=== PATIENT | female | born 1960 | race Hispanic/Latino ===

== ENCOUNTER 2019-05-07 16:35 | Emergency (ER) | payer MEDICAID | END 2019-05-07 17:00 | disposition left against medical advice (07) | LOC: ED 16:35 | DX: R46.89 Other symptoms and signs involving appearance and behavior (principal); Z53.21 Procedure and treatment not carried out due to patient leaving prior to being seen by health care provider ==

== ENCOUNTER 2020-03-18 19:40 | Emergency (ER) | payer MEDICAID ==
[2020-03-18 20:11] LABS: Basophils % (Auto) 0.4 % (0.0-1.8); Eosinophils # (Auto) 0.1 K/mm3 (0.0-0.4); Eosinophils % (Auto) 1.5 % (0.0-4.3); Hematocrit 38.9 % (30.3-42.9); Hemoglobin 13.5 gm/dl (10.1-14.3); Lymphocytes % (Auto) 20.7 % (13.4-35.0); Mean Corpuscular HGB Conc 35 % (30-34); Mean Corpuscular Volume 93 fl (79-97); Monocytes # (Auto) 0.8 K/mm3 (0.0-0.8); Monocytes % (Auto) 8.2 % (0.0-7.3); Platelet Count 222 K/mm3 (140-440); Red Blood Count 4.19 M/mm3 (3.65-5.03); Red Cell Distribution Width 12.5 % (13.2-15.2)
[2020-03-18 20:20] LABS: Bilirubin,Urine NEG (Negative); Blood,Urine NEG (Negative); Color,Urine Yellow (Yellow); Protein,Urine <15 mg/dL mg/dL (Negative); Urobilinogen,Urine < 2.0 mg/dL (<2.0)
[2020-03-18 20:24] LABS: Calcium 9.7 mg/dL (8.4-10.2)
[2020-03-18 20:27] LABS: Benzodiazepines Screen,Urine PRESUMPTIVE NEGATIVE; Cannabinoid Screen,Urine PRESUMPTIVE NEGATIVE; Cocaine Screen,Urine PRESUMPTIVE NEGATIVE; Methadone Screen,Urine PRESUMPTIVE NEGATIVE; Opiate Screen,Urine PRESUMPTIVE NEGATIVE
--- NOTE | 2020-03-18 20:33 | Emergency Department Report ---
<EFE REEVES - Last Filed: 03/18/20 21:27> ED Psych HPI - General Chief Complaint: Psych Stated Complaint: SICK Time Seen by Provider: 03/18/20 20:11 Source: patient Mode of arrival: Ambulatory - History of Present Illness Initial Comments: Patient is 60 years old female with history of hypertension, diabetes, schizophrenia and bipolar. Patient presented to the ER stating that she is not feeling good and she feels like she does not want to live anymore. Patient stated that she is hearing voices but she does not want to tell me what they are telling her. Patient denied any homicidal ideation. She also denied any visual hallucination. Patient stated that she has been using methamphetamine today. MD Complaint: suicidal ideation, feels depressed -: days(s) Associated Psychiatric Symptoms: depression, suicidal ideation, racing thoughts, auditory hallucinations History of same: Yes Quality: constant Associated Symptoms: denies other symptoms If Self Harm: admits thoughts of, intentional overdose - Related Data Home Medications Medication Instructions Recorded Confirmed Last Taken Amlodipine Besylate [Norvasc] 10 mg PO DAILY 06/24/14 06/13/15 06/24/14 Gemfibrozil [Lopid] 600 mg PO BID 06/24/14 06/13/15 06/24/14 Lurasidone HCl [Latuda] 40 mg PO QDAY 06/24/14 06/13/15 06/23/14 Potassium Chloride 10 meq PO QDAY 06/24/14 06/13/15 06/24/14 Simvastatin [Zocor] 10 mg PO QHS 06/24/14 06/13/15 06/24/14 Zolpidem [Ambien] 10 mg PO HS 06/24/14 06/13/15 06/23/14 atenoloL [Tenormin] 25 mg PO DAILY 06/24/14 06/13/15 06/24/14 hydroCHLOROthiazide [Hctz] 12.5 mg PO QDAY 06/24/14 06/13/15 06/24/14 Allergies Allergy/AdvReac Type Severity Reaction Status Date / Time codeine Allergy Itching Verified 05/07/19 16:38 ED Review of Systems Comment: All other systems reviewed and negative Constitutional: denies: chills, fever Respiratory: denies: cough, shortness of breath, SOB with exertion Cardiovascular: denies: chest pain, palpitations Gastrointestinal: denies: abdominal pain, nausea, vomiting, diarrhea, constipation, hematemesis, melena Musculoskeletal: denies: back pain Neurological: denies: headache, weakness, numbness, paresthesias, confusion Psychiatric: depression, auditory hallucinations, suicidal thoughts. denies: visual hallucinations, homicidal thoughts ED Past Medical Hx - Past Medical History Previous Medical History?: Yes Hx Hypertension: Yes Hx Psychiatric Treatment: Yes (schizophrenia and bipolar) Additional medical history: high cholesterol - Surgical History Past Surgical History?: Yes Additional Surgical History: laparscopy - Social History Smoking Status: Current Every Day Smoker Substance Use Type: Alcohol, Methamphetamines - Medications Home Medications: Home Medications Medication Instructions Recorded Confirmed Last Taken Type Amlodipine Besylate [Norvasc] 10 mg PO DAILY 06/24/14 06/13/15 06/24/14 History Gemfibrozil [Lopid] 600 mg PO BID 06/24/14 06/13/15 06/24/14 History Lurasidone HCl [Latuda] 40 mg PO QDAY 06/24/14 06/13/15 06/23/14 History Potassium Chloride 10 meq PO QDAY 06/24/14 06/13/15 06/24/14 History Simvastatin [Zocor] 10 mg PO QHS 06/24/14 06/13/15 06/24/14 History Zolpidem [Ambien] 10 mg PO HS 06/24/14 06/13/15 06/23/14 History atenoloL [Tenormin] 25 mg PO DAILY 06/24/14 06/13/15 06/24/14 History hydroCHLOROthiazide [Hctz] 12.5 mg PO QDAY 06/24/14 06/13/15 06/24/14 History ED Physical Exam - General Limitations: No Limitations General appearance: alert, in no apparent distress, anxious - Head Head exam: Present: atraumatic, normocephalic, normal inspection - Eye Eye exam: Present: normal appearance, PERRL - ENT ENT exam: Present: normal exam, normal orophraynx, mucous membranes moist - Neck Neck exam: Present: normal inspection, full ROM. Absent: tenderness, meningismus, lymphadenopathy, thyromegaly - Respiratory Respiratory exam: Present: normal lung sounds bilaterally - Cardiovascular Cardiovascular Exam: Present: regular rate, normal rhythm, normal heart sounds - GI/Abdominal GI/Abdominal exam: Present: soft, normal bowel sounds. Absent: distended, tenderness, guarding, rebound, rigid, mass, bruit, pulsatile mass, hernia - Extremities Exam Extremities exam: Present: normal inspection, full ROM, normal capillary refill. Absent: pedal edema, calf tenderness - Back Exam Back exam: Present: normal inspection, full ROM. Absent: CVA tenderness (R), CVA tenderness (L) - Neurological Exam Neurological exam: Present: alert, oriented X3, CN II-XII intact - Psychiatric Psychiatric exam: Present: depressed, anxious, suicidal ideation. Absent: agitated, flat affect, manic, homicidal ideation - Skin Skin exam: Present: warm, intact, normal color ED Medical Decision Making - Lab Data Result diagrams: 03/18/20 19:56 03/18/20 19:56 ED Disposition Clinical Impression: Methamphetamine abuse, Depression Disposition: - TO HOME OR SELFCARE Condition: Stable Instructions: Methamphetamine Abuse (ED), Depression (ED), Suicide Prevention for Adults (ED) Additional Instructions: Please follow-up with 1 of the psychiatric and/or substance abuse outpatient referrals that was given to you by the psychiatric team. Return to the emergency department with any worsening of your symptoms, thoughts of harming your self or others, or with any acute distress. Please avoid any further illicit drug use. Referrals: PRIMARY CARE, [Primary Care Provider] - 2-3 Days <EMILEE CERON - Last Filed: 03/19/20 13:01> ED Review of Systems ROS: Stated complaint: SICK Other details as noted in HPI ED Course Vital Signs 03/18/20 03/18/20 03/18/20 19:44 20:24 20:27 Temperature 98.1 F 97.4 F L Pulse Rate 88 84 Respiratory 18 18 18 Rate Blood Pressure 145/69 Blood Pressure 123/85 [Left] O2 Sat by Pulse 96 100 100 Oximetry 03/19/20 03/19/20 01:00 08:00 Temperature 98.0 F 98.2 F Pulse Rate 77 84 Respiratory 16 18 Rate Blood Pressure Blood Pressure 119/70 117/62 [Left] O2 Sat by Pulse 99 95 Oximetry ED Medical Decision Making - Lab Data Result diagrams: 03/18/20 19:56 03/18/20 19:56 - Medical Decision Making Patient initially presented with some suicidal ideations and depression secondary to methamphetamine abuse. She was seen by the psychiatric team today and no longer has any suicidal ideations and is asking for discharge home. She is currently calm, oriented and appropriate. The psychiatric team has cleared her and provided multiple outpatient referrals for psychiatric and substance abuse assistance. She has been instructed to return to the emergency department with any worsening of her symptoms, thoughts of harming herself or others, or with any acute distress. Critical Care Time: No Critical care attestation.: If time is entered above; I have spent that time in minutes in the direct care of this critically ill patient, excluding procedure time. ED Disposition Is pt being admited?: No
[2020-03-18 20:41] LABS: Amphetamine Screen,Urine PRESUMPTIVE POSITIVE
[2020-03-20 12:51] VITALS: BP 117/62
== END 2020-03-19 14:04 | disposition home or self-care (01) ==
LOC: EEVIPCON 19:40 → ED 19:40
DX: F32.9 Major depressive disorder, single episode, unspecified (principal); F15.10 Other stimulant abuse, uncomplicated; F25.0 Schizoaffective disorder, bipolar type; E11.9 Type 2 diabetes mellitus without complications; I10 Essential (primary) hypertension; F17.200 Nicotine dependence, unspecified, uncomplicated; E78.00 Pure hypercholesterolemia, unspecified; Z88.6 Allergy status to analgesic agent; Z79.899 Other long term (current) drug therapy; Z98.890 Other specified postprocedural states
CPT/HCPCS: 36415; 80048; 80307; 80320; 81001; 85025; G0480

== ENCOUNTER 2022-05-10 09:00 | Emergency (ER) | payer MEDICAID ==
[2022-05-10 09:14] VITALS: BP 124/88
== END 2022-05-11 01:30 | disposition left against medical advice (07) ==
LOC: ED 09:00
DX: Z13.30 Encounter for screening examination for mental health and behavioral disorders, unspecified (principal); Z53.21 Procedure and treatment not carried out due to patient leaving prior to being seen by health care provider